=== PATIENT | female | born 1990 | race African-American/Black ===

== ENCOUNTER 2017-07-20 01:24 | Emergency (ER) | payer MEDICAID, OTHER ==
[~2017-07-20] VITALS: Ht 157.5 cm; Wt 46.0 kg
[2017-07-20 01:30] VITALS: BP 141/99
== END 2017-07-20 03:40 | disposition left against medical advice (07) ==
LOC: ER 01:24
DX: R11.0 Nausea (principal); Z53.21 Procedure and treatment not carried out due to patient leaving prior to being seen by health care provider